=== PATIENT | male | born 1950 | race Caucasian/White ===

== ENCOUNTER → 2024-12-06 13:40 | Outpatient (REF) | payer MEDICARE, OTHER, SELFPAY | LOC: HWRAD 13:40 | PROVIDERS: ATTENDING PHYSICIAN Specialist; FAMILY PHYSICIAN Internal Medicine | DX: R80.9 Proteinuria, unspecified (principal); N18.30 Chronic kidney disease, stage 3 unspecified | CPT/HCPCS: 76770 ==

== ENCOUNTER 2025-07-27 05:09 | Inpatient (IN) | payer MEDICARE, OTHER, SELFPAY ==
[2025-07-26 19:36] VITALS: BP 182/97
[2025-07-26 20:07] LABS: Hematocrit 42.0 % (39.0-52.0); Hemoglobin 14.2 g/dL (13.0-18.0); Mean Corp Hgb Conc. 33.8 g/dL (33.0-37.0); Mean Corpuscular Volume 90.7 fL (80.0-94.0); Nucleated Red Blood Cells % 0 % (-); Platelet Count 244 10^3/uL (130-400); Red Cell Dist. Width 13.3 % (11.5-14.5)
[2025-07-26 20:27] VITALS: BMI 39.4
[2025-07-26 20:29] LABS: ALT (SGPT) 16 U/L (0-50); AST (SGOT) 20 U/L (17-59); Albumin 4.0 g/dl (3.5-5.0); Alkaline Phosphatase 96 U/L (38-126); Blood Urea Nitrogen 20 mg/dl (9-20); Calcium 8.9 mg/dl (8.4-10.2); Carbon Dioxide 22 mmol/L (22-30); Chloride 111 mmol/L (98-107); Glucose 103 mg/dl (70-99); Potassium 5.9 mmol/L (3.5-5.1); Sodium 138 mmol/L (135-145); Total Protein 6.8 g/dl (6.3-8.2); eGFR 56.93
[2025-07-26 20:39] LABS: Troponin I < 0.012 ng/ml
[2025-07-27] VITALS (11 sets, daily range): BP systolic 123–173; BP diastolic 57–97; BMI 40.0
--- NOTE | 2025-07-27 00:20 | ED.GENMED ---
History of Present Illness
General
Chief Complaint: Breathing Problem
Source: patient
Exam Limitations: none
Time Seen by Provider: 07/27/25 00:18
Nursing documentation reviewed up to this point in time: agreed with
History of Present Illness
History of Present Illness:
Note:
CHIEF COMPLAINT(S)
Shortness of breath and tightness in the chest.
HISTORY OF PRESENT ILLNESS
The patient is a 74-year-old male with a history of being overweight, HTN, renal insufficency, presenting with acute onset shortness of breath around 3:00 PM today. The patient described his usual state of being able to walk to the mailbox and back
without difficulty, but todays episode was markedly different. He experienced heavy breathing and a sensation of tightness in his chest, prompting concerns about a possible cardiac event. He reported attempting to alleviate symptoms by taking a hot
shower, resulting in coughing up a significant amount of phlegm and needing to clear his nasal passages. Though he did not carefully inspect the expectorated material for blood, he denied noticing any obvious hemoptysis. The patient has a history of
chronic obstructive pulmonary disease (COPD), diagnosed approximately 15 years ago, but was recently informed by a associate professor of literacy that he may have emphysema instead. He denied ever receiving inhalers or other medications for COPD/emphysema. No chest
pain was reported, but the sensation of tightness made the patient anxious about a heart attack.
He described difficulty with exertion, as even a short walk to the kitchen left him hunched over and out of breath. His current level of exertion tolerance is significantly diminished compared to baseline.
EXTERNAL RECORDS REVIEWED
The patient underwent a chest X-ray which showed no signs of pneumonia. An EKG was performed, returning normal results.
CHRONIC MEDICAL CONDITIONS SIGNIFICANTLY AFFECTING CARE
The patient has a history of COPD, specifically emphysema.
SOCIAL HISTORY
The patient has a history of heavy smoking, smoking three packs per day for about 20 years starting at age 9. He quit smoking approximately 40 years ago.
MEDICATIONS
The patient reported not being on any medications for COPD or emphysema.
PHYSICAL EXAM
General: Alert, no acute distress.
Skin: Warm, dry.
Head: Normocephalic, atraumatic.
Neck: Supple, trachea midline.
Eye, Ears, Nose, Mouth, and Throat: Oral mucosa moist.
Cardiovascular: Normal peripheral perfusion, no edema.
Respiratory: Breathing rapid; oxygen saturation measured at 93% on room air. Diffuse wheezing heard throughout
Gastrointestinal: Abdomen nondistended.
Back: Normal range of motion, normal alignment.
Musculoskeletal: Normal ROM, normal strength.
Neurological: Alert and oriented to person, place, time, and situation; no focal neurological deficit observed.
Psychiatric: Cooperative, appropriate mood & affect.
PROBLEM LIST
Acute Problems:
- Acute exacerbation of emphysema, suspected viral trigger.
- Shortness of breath and chest tightness.
Chronic Problems:
- History of COPD/emphysema.
- History of heavy smoking.
PLAN
1. Administer breathing treatments to open the airways.
2. Provide a steroid dose through the IV to reduce inflammation.
3. Monitor the patients response to treatment and assess whether hospital admission for observation is necessary.
4. Arrange for a follow-up with a associate professor of literacy as an outpatient to investigate the underlying cause of the acute episode further.
5. Maintain observation due to the significant decline in exertion tolerance and patients preference for staying overnight for monitoring.
DIFFERENTIAL DIAGNOSIS
The Differential Diagnosis includes, in no particular order and is not limited to:
1. Acute exacerbation of chronic obstructive pulmonary disease (COPD).
2. Emphysema exacerbation.
3. Viral upper respiratory tract infection.
4. Bronchitis.
5. Congestive heart failure.
6. Pulmonary embolism.
7. Asthma exacerbation.
8. Pneumonia.
9. Cardiomyopathy.
10. Pneumothorax.
Disposition:
SUMMARY OF ENCOUNTER
The patient, a 74-year-old male with a history of chronic obstructive pulmonary disease (COPD), presented to the emergency department with severe shortness of breath after walking at home. His drove him to the ER. On examination, he exhibited
increased respiratory rate, with scattered wheezing audible throughout his lungs. There was an improvement in his symptoms following the administration of duonebs (albuterol and ipratropium) and dexamethasone; however, symptoms persisted. His oxygen
saturation dropped into the high 80s with ambulation but showed significant improvement with supplemental oxygen. He expressed feeling unsafe to return home due to the severity of his symptoms. Based on the ongoing respiratory distress and the need
for further management, admission was recommended.
DISPOSITION
Admit
ASSESSMENT
Acute exacerbation of COPD, likely triggered by a viral infection or environmental factors, requiring admission for further management and stabilization.
EMERGENCY TREATMENTS ADMINISTERED
Duonebs (albuterol and ipratropium) and dexamethasone (Decadron), with plans to initiate azithromycin (Zithromax).
PLAN
1. Admit the patient for continued respiratory support and monitoring.
2. Continue oxygen supplementation as needed to maintain adequate oxygen saturation levels.
3. Initiate antibiotic treatment with azithromycin to address potential infectious triggers.
4. Continuous monitoring of respiratory status and response to treatments.
INDEPENDENT REVIEW OF LABS AND INTERPRETATION OF TESTS
None mentioned.
MEDICATION RECONCILIATION
- Administered: Duonebs (albuterol and ipratropium) and dexamethasone (Decadron).
- Prescribed: Azithromycin (Zithromax) to be administered during admission.
MEDICAL DECISION MAKING
- Number and Complexity of Problems Addressed: Chronic conditions affecting care include COPD. Differential diagnosis considered included acute exacerbation of COPD, emphysema exacerbation, viral upper respiratory tract infection, bronchitis,
congestive heart failure, asthma exacerbation, pneumonia, and pulmonary embolism.
- Data:
Category 1: Tests and documents reviewed�Respiratory assessment and treatment response in the emergency department.
- Risk: Consideration of Admission/Observation: Due to the complexity and risk of the patients presenting symptoms, a decision to admit for observation and management was made. Patient expressed feeling unsafe for discharge.
DIAGNOSIS
- Acute exacerbation of COPD (J44.1)
Review of Systems
Review of Systems
All Other Systems: ROS reviewed and negative except as documented in HPI and ROS
Phy Exam
Physical Exam
Physical Exam:
see hpi
Scores
Heart Failure Risk
Heart Failure Risk Score: Not Applicable
Course
Orders/Labs/Results
Orders:
Orders
07/26/25 19:42
Electrocardiogram (*1) Urgent
Reason for Study: Other
Other Reason for Exam: Respiratory Distress
Cardiac Monitoring- Treatment ONCE
EKG- Treatment ONCE
IV Insert/Care/Rem.- Treatment PRN
CR Chest - 2 Views Urgent
Comment:
Reason For Exam: respiratory distress
O2 Therapy [RESP] Urgent
Titrate/Wean O2 to maintain O2 sat greater than (%): 93
Special Instructions: TO MAINTAIN CONTINUOUS O2 SATS >/= 93%
Pulse Ox/cont/shift [RESP] Urgent
Quantity: 1
Special Instructions: continuous pulse ox
07/26/25 19:57
Complete Blood Count/With Diff Urgent
Comprehensive Metabolic Panel Urgent
NT-proBNP Urgent
Troponin I Urgent
07/27/25 00:34
Dexamethasone Sod Phosphate [Decadron] 10 mg IV NOW STA
Ipratropium/Albuterol Sulfate [Duoneb] 3 ml INH R NOW ONE
07/27/25 00:42
COVID-19 Antigen Urgent
Source: Nasal Swab
Influenza A+B Rapid Molecular Urgent
OSMAR Source: Nasal Swab
Specimen Description:
07/27/25 02:24
Ipratropium/Albuterol Sulfate [Duoneb] 3 ml INH R NOW ONE
07/27/25 02:53
Azithromycin 500 mg/250 ml [Zithromax Infusion] 500 mg in 250 ml IV NOW
07/27/25 04:02
Admit/Transfer Patient As Directed
Co-Sign Provider:
Level of Care: Inpatient admission
Assign to:: Telemetry
Physician / Group: Sho
Diagnosis: Acute bronchitis
Reason for Telemetry: Other
Other Reason for Telemetry: hyperkalemia
Date to Stop Telemetry: 07/29/25
Time to Stop Telemetry: 11:00
Reason for Hospitalization: Hypoxia
Expected length of stay greater than two midnights?: Yes
ELOS- Estimated Length of Stay in days: 2
I certify the patient meets the requirements for IP care: Yes
PRN Pain Medication Management As Directed
May give lesser potent ordered pain med per pt: Yes
preference::
Protocol:: Medication orders for pain may be administered in a
manner that supports deferring to patient preference
when the pt is:
- Requesting an ordered lesser potent pain medication.
Least to most potent pain medications are defined
as: acetaminophen < NSAID < tramadol < opioids
(morphine, oxycodone, hydromorphone).
- Requesting a lesser dose of the same medication IF
ORDERED.
- Requesting a less intrusive route of administration
if both routes are prescribed by the provider (PO <
IV).
07/27/25 04:03
Code Status As Directed
Resuscitation Status: Full Code
07/27/25 04:08
Furosemide [Lasix] 20 mg IV NOW STA
Sodium Zirconium Cyclosilicate [Lokelma] 5 gram PO NOW STA
07/27/25 04:12
PRN Pain Medication Management As Directed
May give lesser potent ordered pain med per pt: Yes
preference::
Protocol:: Medication orders for pain may be administered in a
manner that supports deferring to patient preference
when the pt is:
- Requesting an ordered lesser potent pain medication.
Least to most potent pain medications are defined
as: acetaminophen < NSAID < tramadol < opioids
(morphine, oxycodone, hydromorphone).
- Requesting a lesser dose of the same medication IF
ORDERED.
- Requesting a less intrusive route of administration
if both routes are prescribed by the provider (PO <
IV).
07/27/25 04:13
ECG [Electrocardiogram (*1)] Stat
Reason for Study: Other
Other Reason for Exam: Hyperkalemia
07/27/25 Breakfast
Potassium, 2 Gram
At Your Request: Full Participation
Does patient need a safe tray?: No
07/27/25 08:22
Acetaminophen [Tylenol] 650 mg PO Q4HPRN PRN
Albuterol Nebs [Ventolin Nebules] 2.5 mg INH R Q4HPRN PRN
Allopurinol [Zyloprim] 200 mg PO DAILY
Atorvastatin [Lipitor] 40 mg PO DAILY
Bisacodyl [Dulcolax] 10 mg RECTAL [id number] PRN
Carvedilol [Coreg] 25 mg PO BID
Docusate W/Senna [Senokot-S] 1 tablet PO BIDPRN PRN
Guaifenesin/Dextromethorphan [Robitussin Dm] 5 ml PO Q6HPRN PRN
Ipratropium/Albuterol Sulfate [Duoneb] 3 ml INH R QID
Mag Hydrox/Al Hydrox/Simeth [Maalox] 30 ml PO Q6HPRN PRN
Pantoprazole [Protonix] 40 mg PO DAILY
Polyethylene Glycol Powder [Miralax] 17 grams PO DAILYPRN PRN
Tamsulosin [Flomax] 0.8 mg PO DAILY
Peak Flow Rate [RESP] DAILY
Quantity: 1
07/27/25 08:22
Urinalysis Reflex To Culture Routine
Sputum Culture [Respiratory Culture/Gram Stain] Routine
OSMAR Source: Sputum
Specimen Description:
Activity As Directed
Activity Level: With Assistance
Vital Signs As Directed
Frequency: Per unit guidelines
Rx Incentive Spirometry [RESP] Routine
Frequency: q1h while awake
DX Deep Vein Thrombosis Video Routine
07/27/25 08:30
Basic Metabolic Panel Routine
Complete Blood Count/No Diff Routine
Magnesium Routine
07/27/25 09:00
NIFEdipine EXTENDED RELEASE [Procardia Xl (Extended Release)] 30 mg PO DAILY
07/27/25 18:00
Enoxaparin Sodium [Lovenox] 40 mg SC QPM
07/27/25 22:00
Losartan [Cozaar] 100 mg PO HS
07/28/25 03:00
Azithromycin 500 mg/250 ml [Zithromax Infusion] 500 mg in 250 ml IV Q24H
07/29/25 11:00
DC Protocol for Telemetry ONCE
Abnormal Lab Results
07/26/25
19:57
WBC 17.2 H 10^3/uL
(4.8-10.8)
RBC 4.63 L 10^6/uL
(4.70-6.10)
Abs Immat Gran (auto) 0.1 H 10^3/uL
(0-0.05)
Absolute Neuts (auto) 13.8 H 10^3/uL
(1.4-6.5)
Absolute Monos (auto) 1.0 H 10^3/uL
(0.1-0.6)
Neutrophils % 80.2 H %
(42.2-75.2)
Lymphocytes % 11.4 L %
(20.5-51.1)
Potassium 5.9 H mmol/L
(3.5-5.1)
Chloride 111 H mmol/L
(98-107)
Glucose 103 H mg/dl
(70-99)
07/26/25 19:57
07/26/25 19:57
Vital Signs
Initial and Last Documented VS:
Initial Vital Signs
Temp Pulse Resp BP Pulse Ox
98.0 F 82 36 182/97 94
07/26/25 19:36 07/26/25 19:36 07/26/25 19:36 07/26/25 19:36 07/26/25 19:36
Last Documented Vital Signs
Temp Pulse Resp BP Pulse Ox
98.7 F 100 20 165/94 95
07/27/25 08:25 07/27/25 08:25 07/27/25 08:25 07/27/25 08:25 07/27/25 08:25
*Pulse Oximetry
SaO2: 93
Oxygen Mode of Delivery: Room air
Patient hypoxic: no
*Critical Care Note
Total Time (30-74mins, 75-104mins- exclusive of procedures): Not Applicable
ED Attending Note
-
Portions of this chart may have been created with voice recognition software.� Occasional wrong word or��sound alike� substitutions may have occurred due to the inherent limitations of voice recognition software.
Discharge Plan
Departure
Patient Disposition: Admit
Date of Disposition: 07/27/25
Time of Disposition: 02:54
Admit to: Med/Surg
Presentation/result/management discussed w/ accepting MD/DO: Hospitalist
Patient with high blood pressure during this ER visit?: Yes
Condition: Fair
Discharge Problem:
COPD exacerbation
Interventions
Interventions:
*Risk Screen - Suicide Last Done: 07/26/25 19:51
*General Assessment Last Done: 07/26/25 20:27
*ED- Fall Risk Assessment Last Done: 07/26/25 20:27
*ED COVID-19 Vaccine History Last Done: 07/26/25 20:27
*Nursing Disposition Last Done: 07/27/25 08:15
ED- Cardiac Assessment Last Done: 07/26/25 20:31
ED- Pulmonary Assessment Last Done: 07/26/25 20:31
Discharge Date and Time
Discharge Date/Time: 07/27/25 08:15
[2025-07-27] MEDS: DECADRON 10 MG IV (00:52)
[2025-07-27] MEDS: DUONEB 3 ML INH ×5 (00:52→19:10)
[2025-07-27 01:33] LABS: COVID-19 Antigen Negative (Negative)
[2025-07-27] MEDS: ZITHROMAX INFUSION 250 IV (03:04)
--- NOTE | 2025-07-27 03:42 | HPS.HSE ---
Family Physician
-
Family Physician: Randal Funez
Chief Complaint
-
Shortness of breath
History of Present Illness
This is a 74-year-old with past medical history significant for hypertension, hyperlipidemia, BPH, GERD, obesity, REJI not on CPAP who presents to the emergency department with productive cough and shortness of breath.
Patient reported that he was seen yesterday felt up until the afternoon prior to coming to the ED. He had just finished doing some work around his house when he felt short of breath. He felt some chest tightness to he could not clear phlegm from
his chest. Patient reports history of chronic morning cough that is productive of tiny amount of phlegm. In today to clear out the congestion the patient took a shower and applied some hot water. This resulted in cough productive of large amount
of phlegm. He was unaware of the color because he swallowed it. He coughed up just like 20 of phlegm 3 times. When he walked out of the shower he started getting dyspnea on exertion with minimal activity. He was walking across the room or even
getting to bed because his some dyspnea. He states the chest tightness continues. He audible respiratory sounds.
He denied having any chills. He denied any fevers. Patient denies any chest pain. He denies palpitations or lower extremity edema.
Patient reported that he has been told that he had COPD in the past but later was told that he had emphysema. He is a former smoker but quit over 30 years ago. He denies any prior history of recurrent bronchitis. He has not been hospitalized for
pneumonia or bronchitis in the past. He has never been fully evaluated for airway obstructive disease. Patient does have REJI but he is not tolerant of CPAP.
On review he does state that he has continued to have dysuria over the last 1 month. He reports a prior history of kidney stone. Currently, he denies any flank pain. He denies any hematuria.
On arrival in the emergency department he was hypoxic requiring supplemental oxygen and now satting 95% on 2 L. Blood pressure was 182/87 pulse 87. ECG NSR 80. Trop/BNP negative.
Otherwise, 7.2, hemoglobin 14.2 platelet count 244. Labs notable for a potassium of 5.9 BUN and creatinine were stable compared to baseline. COVID test was negative, flu test was negative.
Chest x-ray showed no acute infiltrate.
Medical History
Past Medical History
Past Medical History: Reports GERD, HTN, Hypercholesterolemia and Other (Nephrolithiasis, BPH, gout)
Past Surgical History: Reports Other (Hernia repair)
Social History
Tobacco: Former Smoker
Alcohol: Occasional
Drug: None
Personal:
Living: With Family
Employment: Retired
Family History
Family History: Not pertinent
Allergies / Home Medications
Allergies reflects when Allergies were last updated in [facility].
Home Medications with original date entered in [facility]
Allergy/Medication List:
Allergies
Allergy/AdvReac Type Severity Reaction Status Date / Time
amlodipine (From Norvasc) Allergy cough Verified 07/26/25 19:36
felodipine (From Plendil) Allergy gout Verified 07/26/25 19:36
Home Medications
allopurinol 100 mg tablet 200 mg PO DAILY 07/27/25
atorvastatin 40 mg tablet 40 mg PO DAILY 07/27/25
carvedilol 25 mg tablet 25 mg PO BID 07/27/25
losartan 100 mg tablet 100 mg PO HS 07/27/25
losartan 100 mg tablet mg 07/27/25
nifedipine 30 mg tablet,extended release 24 hr 30 mg PO DAILY 07/27/25
pantoprazole 40 mg tablet,delayed release 40 mg PO DAILY 07/27/25
tamsulosin 0.4 mg capsule 0.8 mg PO DAILY 07/27/25
Review of Systems
-
History Source: Patient
Constitutional: Reports No Symptoms
EENT: Reports No Symptoms
Respiratory: Reports Cough and Trouble Breathing
Cardiac: Reports No Symptoms
Abdomen/GI: Reports No Symptoms
: Reports No Symptoms
Musculoskeletal: Reports No Symptoms
Skin: Reports No Symptoms
Neurological: Reports No Symptoms
Endocrine: Reports No Symptoms
Hematologic/Lymphatic: Reports No Symptoms
Psych: Reports No Symptoms
Physical Exam
Vital Signs
Vital Signs
Temp Pulse Resp BP Pulse Ox
98.0 F 87 17 182/97 95
07/26/25 19:36 07/27/25 03:00 07/27/25 03:00 07/26/25 19:36 07/27/25 03:09
Physical Exam
General: Well Developed, Comfortable, Conversant and Obese; No Respiratory Distress
HEENT: NormoCephalic, Anicteric, Moist mucous membranes, Atraumatic, PERRLA and Oxygen
Respiratory: Clear
Cardiac: S1/S2 and Regular Rhythm
Breast: Deferred by me
GI: Soft, Non Tender, Normal Bowel Sounds and Distended
Rectal: Deferred by Provider
Genito-urinary: Deferred by me
Musculoskeletal: No Clubbing, No Cyanosis, Edema, Left Lower Extremity (trace ankle) and Edema, Right Lower Extremity (trace)
Skin: Warm and Dry; No Rash
Neuro: AO x 3 and Nonfocal/grossly intact
Hematologic/Lymphatic: No Lymphadenopathy
Psych: Calm
Laboratory Results
-
07/26/25 19:57
07/26/25 19:57
Laboratory Results
Total Bilirubin 0.4 mg/dl (0.2-1.3) 07/26/25 19:57
AST 20 U/L (17-59) 07/26/25 19:57
ALT 16 U/L (0-50) 07/26/25 19:57
Alkaline Phosphatase 96 U/L (38-126) 07/26/25 19:57
Troponin I < 0.012 ng/ml 07/26/25 19:57
Data Reviewed
-
Diagnostic Radiology: Report Reviewed by me
Lab Data: Labs Reviewed by me
Impression/Plan
-
IMPRESSION:
74-year-old generally healthy with obesity, hypertension, hyperlipidemia, gout, BPH who reports being told he had COPD/emphysema but has never been hospitalized for bronchitis or COPD exacerbation and has quit smoking over 30 years ago presents to
the emergency department with acute episode of shortness of breath and cough productive of phlegm which she is followed. He has increased oxygen requirement, and so dyspnea even at rest. By time I saw him after the neb treatments patient has been
feeling better. He has no fever but has a white count of 17.2. Chest x-ray is clear. COVID and flu are negative. Hyperkalemia on labs of uncertain etiology
PLAN:
1. SOB -productive cough, wheezing (course), dyspnea and a likely history of COPD/emphysema suggestive of acute bronchitis/COPD exacerbation. X-ray is clear. No infiltrates. Does have trace peripheral edema but no prior history of CHF or CAD.
Likely from calcium channel marixa use.
-Admit to MedSurg
-Obtain sputum for culture
-Start azithromycin at this time
-Blood cultures afebrile
-Continue with the DuoNeb [id number], as needed albuterol
-60 mg prednisone daily
-Check BNP in the morning
2. Hyperkalemia - K 5.9. Creatinine 1.3 which is likely his baseline. Endo history of diabetes but he is on losartan 100 mg no prior labs.
-Suspect ARB induced hyperkalemia
-Will give 1 dose of Lokelma
-Will give 20 mg IV Lasix
-Repeat K in a.m.
-Low K diet for now
- consider addition of diuretic for improvement in bp control and K control (may be limited by gout)
3. Urine -patient reports dysuria for several weeks. Denies gross hematuria. Denies any flank pain or other signs of nephrolithiasis or infection.
-Obtain UA
-Continue tamsulosin 0.8 and monitor ins and outs and monitor for urinary retention
4. Hypertension
-Continue losartan, carvedilol and nifedipine for now
DVT prophylaxis�Lovenox subcu
CODE STATUS�full code
[2025-07-27] MEDS: LASIX 20 MG IV (04:19)
[2025-07-27] MEDS: LOKELMA 5 GRAM PO (04:19)
[2025-07-27 08:39] LABS: Hematocrit 42.5 % (39.0-52.0); Hemoglobin 14.1 g/dL (13.0-18.0); Mean Corp Hgb Conc. 33.2 g/dL (33.0-37.0); Mean Corpuscular Volume 90.8 fL (80.0-94.0); Platelet Count 262 10^3/uL (130-400); Red Cell Dist. Width 13.2 % (11.5-14.5)
--- NOTE | 2025-07-27 08:42 | W.PN.HOSP.TC ---
Today's Communication/Plan
-
steroids
bronchodilators
wean O2 as tolerated
Pulm Eval
Assessment / Plan
Assessment / Plan
Physical Exam
General: No acute distress, appears comfortable at this time, Obese
HEENT: NormoCephalic, Anicteric, Moist mucous membranes, Atraumatic, PERRLA
Respiratory: Clear to auscultation b/l, stable respiratory status on 2L nasal cannula
Cardiac: S1/S2 and Regular Rhythm
GI: Soft, Non Tender, Normal Bowel Sounds and Distended
Musculoskeletal: No Clubbing, No Cyanosis, No edema
Skin: Warm and Dry; No Rash
Neuro: AO x 3 conversant and coherent
Psych: Calm
74M HTN HLD BPH GERD Obesity REJI COPD here for acute sob suspected bronchitis.
# SOB suspected acute bronchitis/COPD exacerbation. X-ray is clear. No infiltrates.
-Cont azithromycin
-Blood cultures afebrile
-Continue with the DuoNeb [id number], as needed albuterol
-Prednisone 40 mg daily
-BNP 290
-ECHO appreciated EF 60-65%
-Mild D-dimer elevation noted 0.76, patient already clinically improved non-tachy, with renal insufficiency would hold off on CT PE study for now
-Pulm eval
# Hyperkalemia - K 5.9. Creatinine 1.3 which is likely his baseline.
-Suspect ARB induced hyperkalemia
-Received 1 dose of Lokelma and 20 mg IV Lasix on admission
-K since improved though not resolved
-Low K diet for now
# Urine -patient reports dysuria for several months. Denies gross hematuria. Denies any flank pain or other signs of nephrolithiasis or infection.
-UA not suggestive of UTI
-Continue tamsulosin 0.8 and monitor ins and outs and monitor for urinary retention
# Hypertension
-Continue home carvedilol and nifedipine
-hold home losartan d/t hyperkalemia as above
dvt ppx Lovenox
Full Code
I spent a total of 50 minutes with the patient or on the floor. More than 50% of this time involved counseling and coordination of care.
Anticipated Discharge: 24 - 48 hours
Subjective/Interval History
-
Date of Service: July 27, 2025
No acute distress, sitting up comfortably in bed. Reports overall improvement in symptoms, including sob. stable respiratory status on 2L nasal cannula.
Objective Data
-
Labs:
Laboratory Results
07/27/25
08:30
WBC 17.1 H
Hgb 14.1
Hct 42.5
Plt Count 262
Sodium Pending
Potassium Pending
Chloride Pending
Carbon Dioxide Pending
BUN Pending
Creatinine Pending
Glucose Pending
Calcium Pending
Vital Signs:
Vital Signs
Temp Pulse Resp BP Pulse Ox
98.7 F 100 20 165/94 95
07/27/25 08:25 07/27/25 08:25 07/27/25 08:25 07/27/25 08:25 07/27/25 08:25
[2025-07-27 09:22] LABS: Blood Urea Nitrogen 24 mg/dl (9-20); Calcium 9.8 mg/dl (8.4-10.2); Carbon Dioxide 22 mmol/L (22-30); Chloride 108 mmol/L (98-107); Estimated Creatinine Clearance 58 ml/min; Glucose 174 mg/dl (70-99); Magnesium 1.6 mg/dl (1.6-2.3); Potassium 5.3 mmol/L (3.5-5.1); Sodium 139 mmol/L (135-145); eGFR 47.95
[2025-07-27] MEDS: ZYLOPRIM 200 MG PO (09:27)
[2025-07-27] MEDS: PROTONIX 40 MG PO (09:28)
[2025-07-27] MEDS: LIPITOR 40 MG PO (09:28)
[2025-07-27] MEDS: PROCARDIA XL (EXTENDED RELEASE) 30 MG PO (09:28)
[2025-07-27] MEDS: COREG 25 MG PO ×2 (09:29→20:34)
[2025-07-27] MEDS: FLOMAX 0.8 MG PO (09:29)
[2025-07-27] MEDS: DELTASONE 40 MG PO (10:04)
[2025-07-27] MEDS: DUONEB INH (10:26)
[2025-07-27 10:56] LABS: D-Dimer 0.76 ug/mlFEU (0.00-0.50)
[2025-07-27] MEDS: TYLENOL 650 MG PO (11:19)
--- NOTE | 2025-07-27 13:02 | CM ---
CM reviewed chart, patient seen bedside, initial assessment completed. Patient resides independently in multiple level home, resides on first floor, ramp to enter. Patient has a commode, walker, cane, safety rails in bathroom. Patient currently on
O2, does not wear home O2. Patient denies VN, reports SNF hx in past ([facility], another facility in [place]). PCP Adam Funez, [facility], confirms prescription coverage. Patient denies insecurities at home. CM will continue to
follow for all discharge planning needs.
Plan; home no needs, watch for O2/VN needs.
--- NOTE | 2025-07-27 15:18 | CON.PUL ---
Consultation
Consultation Request
Date/Time Consultation Requested: 07/27/2025
Date/Time Consultation Performed: 07/27/2025
Requesting Provider: Dr. Berkowitz
Performing Provider: Dr. Brent Neil
Reason for Consultation: Exertional dyspnea/COPD exacerbation
Medical History
-
History of Present Illness:
74-year-old man with history of obesity, hypertension, hyperlipidemia, gout, BPH, reports history of COPD without any acute exacerbations in the past, quit smoking 30 years ago presented to the emergency department on 07/27/2025 complaining of acute
shortness of breath and productive cough with phlegm. Denies hemoptysis.
He was found to be hypoxemic requiring supplemental oxygen.
Patient felt better with nebulizer therapy.
He was found to have leukocytosis 17,000.
Chest x-ray without acute abnormalities.
We were consulted on 07/27/2025 for evaluation of respiratory distress.
Past Medical History
Past Medical History: Other (See assessment and plan)
Social History
Tobacco: Former Smoker (Quit 30 years ago)
Alcohol: Occasional
Drug: None
Personal:
Living: With Family
Employment: Retired
Family History
Family History: Reviewed & Not Pertinent
Allergies / Home Medications
Allergies
Allergy/AdvReac Type Severity Reaction Status Date / Time
amlodipine (From Norvasc) Allergy cough Verified 07/26/25 19:36
felodipine (From Plendil) Allergy gout Verified 07/26/25 19:36
Home Medications
�Medication �Instructions �Recorded �Confirmed �Last Taken �Type
allopurinol 100 mg tablet 200 mg PO DAILY 07/27/25 07/27/25 Unknown History
atorvastatin 40 mg tablet 40 mg PO DAILY 07/27/25 07/27/25 Unknown History
carvedilol 25 mg tablet 25 mg PO BID 07/27/25 07/27/25 Unknown History
losartan 100 mg tablet 100 mg PO HS 07/27/25 07/27/25 Unknown History
losartan 100 mg tablet mg 07/27/25 Unknown History
nifedipine 30 mg tablet,extended 30 mg PO DAILY 07/27/25 07/27/25 Unknown History
release 24 hr
pantoprazole 40 mg tablet,delayed 40 mg PO DAILY 07/27/25 07/27/25 Unknown History
release
tamsulosin 0.4 mg capsule 0.8 mg PO DAILY 07/27/25 07/27/25 Unknown History
Review of Systems
-
History Source: Patient
All other systems: Negative unless noted
Vitals / Labs / Diagnostic Testing
Vital Signs
Temp Pulse Resp BP Pulse Ox
98.3 F 72 20 140/68 95
07/27/25 11:15 07/27/25 11:25 07/27/25 11:25 07/27/25 11:15 07/27/25 11:25
Lab Data
07/27/25 08:30
07/27/25 08:30
Microbiology
07/27/25 00:42 Nasal Swab Influenza Types A & B (TIMI) - Final
Negative for Influenza A & B, NAAT
Negative results must be combined with clinical observations
and patient history.
Nucleic Acid Amplification test (NAAT)performed on the
[employer] platform.
Diagnostic Testing:
Physical Exam
-
HEENT: Normocephalic
Cardiovascular: S1/S2
Respiratory: Wheeze and Non-Labored Respirations
GI: Non Distended
Neurology: Awake, Oriented, AO x 3 and No Motor Deficits
Skin: Warm
General: Comfortable
Assessment
-
74-year-old man with past medical history noted. Came to the hospital complaining of cough, shortness of breath and phlegm production. Found to be hypoxemic., Found to be bronchospastic as well-started nebulizers steroids and antibiotics due to
present leukocytosis.
We were consulted on 07/27/2025 for evaluation.
Acute hypoxemic respiratory insufficiency: With cough, wheezing/phlegm production-suspect acute tracheobronchitis.
? History of COPD possible acute exacerbation of COPD-first time.
Usually not on inhaler
Negative flu and COVID.
Chest x-ray: 07/27/2025-reviewed, no acute abnormalities
Negative troponin/normal proBNP
Acute kidney injury
Conditions present prior admission:
Hypertension
Hypercholesterolemia
Gout
GERD
BPH
Former smoker quit 30 years ago
-
Assessment and plan:
Suspect acute tracheobronchitis-possible exacerbation of COPD-not formally diagnosed but patient does report history of it.
Usually not on inhalers
Bronchospasm improved 07/27/2025
Agree with tapering down to prednisone 40 mg and decrease by 10 mg every 48 hours to off.
Continue nebulizers while in the hospital.
With tracheobronchitis-negative chest x-ray-not unreasonable to use 5 days of antibiotics.
Will require close observation in the outpatient setting to assure he is clinically improved and he does not develop pneumonia.
I will recommend outpatient pulmonary follow-up.
-
Wean down FiO2 as able. Previously not on oxygen
Currently on 3 L nasal cannula.
Encourage deep breathing exercising and ambulation.
-
I did discuss with family and patient does have chronic shortness of breath previous to this. Family suspect is from obesity and possibly underlying COPD.
Recommend pulmonary function testing
Echocardiogram pending
-
Snoring: Discussed possibility of obstructive sleep apnea. Will discuss in the outpatient setting.
-
Will follow
[2025-07-27] MEDS: LOVENOX 40 MG SC (16:39)
--- NOTE | 2025-07-27 20:05 | PTCARENOTE ---
Notified CIRCULATING PROCESS INSPECTOR via TT of elevated DDimer from dayshift after reviewing patient's labs. CIRCULATING PROCESS INSPECTOR forwarded TT to daytime provider and is awaiting his response.
[2025-07-28] VITALS (8 sets, daily range): BP systolic 124–171; BP diastolic 57–84; PULSE 73–74; O2SAT 94
[2025-07-28] MEDS: ZITHROMAX INFUSION 250 IV (03:20)
[2025-07-28 04:06] LABS: Urine Character Clear (Clear)
[2025-07-28 05:09] LABS: Urine Squamous Cell >30 /LPF (Few)
[2025-07-28 05:10] LABS: Urine Red Blood Cell 0-2 /HPF (0-2)
[2025-07-28] MEDS: DUONEB 3 ML INH ×4 (07:52→19:47)
--- NOTE | 2025-07-28 07:52 | W.PN.HOSP.TC ---
Today's Communication/Plan
-
see a/p
Assessment / Plan
Assessment / Plan
Physical Exam
General: No acute distress, appears comfortable at this time, Obese
HEENT: NormoCephalic, Anicteric, Moist mucous membranes, Atraumatic, PERRLA
Respiratory: Clear to auscultation b/l, stable respiratory status on room air
Cardiac: S1/S2 and Regular Rhythm
GI: Soft, Non Tender, Normal Bowel Sounds and Distended
Musculoskeletal: No Clubbing, No Cyanosis, No edema
Skin: Warm and Dry; No Rash
Neuro: AO x 3 conversant and coherent
Psych: Calm
74M HTN HLD BPH GERD Obesity REJI COPD here for acute sob suspected bronchitis.
# SOB suspected acute bronchitis/COPD exacerbation. X-ray is clear. No infiltrates.
-Cont azithromycin
-Blood cultures afebrile
-Continue with the DuoNeb otlape-fgk-eyabm, as needed albuterol
-Prednisone 40 mg daily
-BNP 290
-ECHO appreciated EF 60-65%
-Mild D-dimer elevation noted 0.76, patient already clinically improved non-tachy, with renal insufficiency would hold off on CT PE study for now
-Pulm eval appreciated
-check Home oxygen and nocturnal saturation
# Hyperkalemia - K 5.9. Creatinine 1.3 which is likely his baseline.
-Suspect ARB induced hyperkalemia
-Received 1 dose of Lokelma and 20 mg IV Lasix on admission
-K since improved though not resolved
-Low K diet for now
-repeat Lokelma 07/28
#Constipation
Bowel regimen Senokot-S Miralax
# Urine -patient reports dysuria for several months. Denies gross hematuria. Denies any flank pain or other signs of nephrolithiasis or infection.
-UA not suggestive of UTI
-Continue tamsulosin 0.8 and monitor ins and outs and monitor for urinary retention
-cont w outpt urology follow up
# Hypertension
-Continue home carvedilol and nifedipine
-hold home losartan d/t hyperkalemia as above
#Insomnia
patient normally takes Melatonin 30 mg nightly, counseled to reduce dose
trial trazodone 50 mg HS
dvt ppx Lovenox
Full Code
I spent a total of 45 minutes with the patient or on the floor. More than 50% of this time involved counseling and coordination of care.
Anticipated Discharge: Within 24 hours
Subjective/Interval History
-
Date of Service: July 28, 2025
weaned off oxygen supplementation, stable respiratory status on room air.
Objective Data
-
Labs:
Laboratory Results
07/28/25
07:26
WBC Pending
Hgb Pending
Hct Pending
Plt Count Pending
Sodium Pending
Potassium Pending
Chloride Pending
Carbon Dioxide Pending
BUN Pending
Creatinine Pending
Glucose Pending
Calcium Pending
Vital Signs:
Vital Signs
Temp Pulse Resp BP Pulse Ox
98.1 F 78 20 155/78 93
07/28/25 03:46 07/28/25 03:46 07/28/25 03:46 07/28/25 03:46 07/28/25 03:46
I&O
07/27/25 07/28/25 07/29/25
06:59 06:59 06:59
Intake Total 1280 / 1280
Output Total 275 / 275
Balance 1005 / 1005
[2025-07-28] MEDS: DELTASONE 40 MG PO (08:15)
[2025-07-28] MEDS: PROCARDIA XL (EXTENDED RELEASE) 30 MG PO (08:15)
[2025-07-28] MEDS: ZYLOPRIM 200 MG PO (08:15)
[2025-07-28] MEDS: COREG 25 MG PO ×2 (08:16→21:06)
[2025-07-28] MEDS: FLOMAX 0.8 MG PO (08:16)
[2025-07-28] MEDS: LIPITOR 40 MG PO (08:16)
[2025-07-28] MEDS: PROTONIX 40 MG PO (08:16)
[2025-07-28] MEDS: APRESOLINE 5 MG IV (08:20)
[2025-07-28 08:25] LABS: Hematocrit 39.3 % (39.0-52.0); Hemoglobin 13.1 g/dL (13.0-18.0); Mean Corp Hgb Conc. 33.3 g/dL (33.0-37.0); Mean Corpuscular Volume 90.3 fL (80.0-94.0); Platelet Count 236 10^3/uL (130-400); Red Cell Dist. Width 13.2 % (11.5-14.5)
[2025-07-28 08:54] LABS: Blood Urea Nitrogen 34 mg/dl (9-20); Calcium 9.4 mg/dl (8.4-10.2); Carbon Dioxide 24 mmol/L (22-30); Chloride 107 mmol/L (98-107); Estimated Creatinine Clearance 58 ml/min; Glucose 129 mg/dl (70-99); Magnesium 1.7 mg/dl (1.6-2.3); Potassium 5.3 mmol/L (3.5-5.1); Sodium 138 mmol/L (135-145); eGFR 47.95
[2025-07-28] MEDS: MIRALAX 17 GRAMS PO (10:38)
[2025-07-28] MEDS: LOKELMA 10 GRAM PO (10:38)
--- NOTE | 2025-07-28 11:33 | W.PN.PUL3 ---
Today's Communication / Plan
-
Complete 5 days of antibiotics-for bronchitis
Prednisone taper
No need to discharge on inhalers
Weight loss recommended
Obstructive sleep apnea reevaluation recommended-patient states that he is not interested at this point.
Outpatient pulmonary follow-up in the next several weeks
Sign off
Assessment
-
74-year-old man with past medical history noted. Came to the hospital complaining of cough, shortness of breath and phlegm production. Found to be hypoxemic., Found to be bronchospastic as well-started nebulizers steroids and antibiotics due to
present leukocytosis.
We were consulted on 07/27/2025 for evaluation.
Acute hypoxemic respiratory insufficiency: With cough, wheezing/phlegm production-suspect acute tracheobronchitis.
? History of COPD possible acute exacerbation of COPD-first time.
Usually not on inhaler
Negative flu and COVID.
Chest x-ray: 07/27/2025-reviewed, no acute abnormalities
Negative troponin/normal proBNP
Acute kidney injury
Conditions present prior admission:
Hypertension
Hypercholesterolemia
Gout
GERD
BPH
Former smoker quit 30 years ago
-
Assessment and plan:
Suspect acute tracheobronchitis-possible exacerbation of COPD-not formally diagnosed but patient does report history of it.
Usually not on inhalers
Bronchospasm resolved 07/28/2025.-
Continue prednisone 40 mg and decrease by 10 mg every 48 hours to off
Continue nebulizers while in the hospital.
With tracheobronchitis-negative chest x-ray-not unreasonable to use 5 days of antibiotics.
Persistent leukocytosis-possibly from steroids
Afebrile
Nontoxic
Clinically improved
Will require close observation in the outpatient setting to assure he is clinically improved and he does not develop pneumonia.
Recommend outpatient pulmonary cetdda-ac-tbbjzdo agreeable.
-
Oxygen supplementation has been discontinued.
Lung exam is clear to auscultation
Encourage deep breathing exercising and ambulation.
-
I did discuss with family and patient does have chronic shortness of breath previous to this. Family suspect is from obesity and possibly underlying COPD.
Recommend pulmonary function testing
Echocardiogram this admission: Reviewed showed normal LVEF. No significant valvular abnormalities or pericardial effusion. No motion wall abnormalities
-
Snoring: Discussed possibility of obstructive sleep apnea. Will discuss in the outpatient setting.
Patient states that he had obstructive sleep apnea and he was intolerant to CPAP.
For his obesity he was tried tried to get approved for GLP-1 agonist but the copayment was too expensive.
He is not interested on reevaluation for obstructive sleep apnea but will be an ongoing discussion in the outpatient setting.
-
No additional recommendations
Follow-up
Hopefully discharge soon.
Subjective Data
-
Date of Service:
Date of Service: July 28, 2025
Chief Complaint: Pulmonary Follow Up (Exertional dyspnea)
Subjective:
Patient does have chronic exertional dyspnea, worse in admission.
Feels better overall clinically.
Review of Systems
Cardiopulmonary: Dyspnea, Dyspnea on Exertion (Acute component improved) and Wheezing (None)
GI: Abdominal Pain
Objective Data
Data Reviewed
Vital Signs / I&O / Oxygen:
Vital Signs
Temp Pulse Resp BP Pulse Ox
97.6 F 67 18 171/84 95
07/28/25 08:45 07/28/25 08:45 07/28/25 08:45 07/28/25 08:45 07/28/25 08:45
Intake and Output
07/27/25 07/28/25 07/29/25
06:59 06:59 06:59
Intake Total 1280 / 1280
Output Total 275 / 275
Balance 1005 / 1005
SaO2 95
Nasal Cannula flow liters per 3
minute
Physical Exam
General: Comfortable
HEENT: Normocephalic
Cardiovascular: S1-S2
Respiratory: Non-Labored Respirations
GI: Soft, Non Distended and Non Tender
Neurology: Awake, Alert and AO x 3
Skin: Warm
Labs/Micro/Reports
Lab Data
07/28/25 07:26
07/28/25 07:26
Microbiology
07/27/25 00:42 Nasal Swab Influenza Types A & B (TIMI) - Final
Negative for Influenza A & B, NAAT
Negative results must be combined with clinical observations
and patient history.
Nucleic Acid Amplification test (NAAT)performed on the
[employer] platform.
[2025-07-28] MEDS: LOVENOX 40 MG SC (17:22)
[2025-07-28] MEDS: SENOKOT-S 1 TABLET PO (21:06)
[2025-07-28] MEDS: DESYREL 50 MG PO (21:07)
[2025-07-29 03:00] VITALS: BP 132/60
[2025-07-29 07:30] VITALS: BP 160/78
[2025-07-29 08:20] LABS: Hematocrit 40.4 % (39.0-52.0); Hemoglobin 13.8 g/dL (13.0-18.0); Mean Corp Hgb Conc. 34.2 g/dL (33.0-37.0); Mean Corpuscular Volume 90.8 fL (80.0-94.0); Platelet Count 264 10^3/uL (130-400); Red Cell Dist. Width 13.2 % (11.5-14.5)
[2025-07-29] MEDS: VENTOLIN NEBULES 2.5 MG INH (08:21)
[2025-07-29 08:58] LABS: Blood Urea Nitrogen 36 mg/dl (9-20); Calcium 8.8 mg/dl (8.4-10.2); Carbon Dioxide 24 mmol/L (22-30); Chloride 107 mmol/L (98-107); Estimated Creatinine Clearance 62 ml/min; Glucose 101 mg/dl (70-99); Magnesium 1.9 mg/dl (1.6-2.3); Potassium 4.4 mmol/L (3.5-5.1); Sodium 139 mmol/L (135-145); eGFR 52.09
[2025-07-29] MEDS: LIPITOR 40 MG PO (08:59)
[2025-07-29] MEDS: ZITHROMAX 250 MG PO (08:59)
[2025-07-29] MEDS: PROTONIX 40 MG PO (08:59)
[2025-07-29] MEDS: DELTASONE 40 MG PO (09:00)
[2025-07-29] MEDS: FLOMAX 0.8 MG PO (09:00)
[2025-07-29] MEDS: ZYLOPRIM 200 MG PO (09:00)
[2025-07-29] MEDS: SENOKOT-S 1 TABLET PO (09:00)
[2025-07-29] MEDS: COREG 25 MG PO (09:01)
[2025-07-29] MEDS: MIRALAX 17 GRAMS PO (09:01)
[2025-07-29] MEDS: PROCARDIA XL (EXTENDED RELEASE) 30 MG PO (09:03)
[2025-07-29 10:03] LABS: Troponin I 0.017 ng/ml
[2025-07-29 11:15] VITALS: BP 139/62
--- NOTE | 2025-07-29 12:57 | CM ---
CM reviewed chart, patient seen bedside. CM discussed with Hospitalist, patient does not require nocturnal O2. Per PT, no skilled need. Patient plan return home no needs. IMM verbally reviewed, provided with copy, placed in chart. Patient reports
his will provide transportation home. CM will continue to follow for all discharge planning needs.
Plan; home no needs
--- NOTE | 2025-07-29 14:05 | W.PN.HOSP.TC ---
Today's Communication/Plan
-
discharge
Assessment / Plan
Assessment / Plan
Physical Exam
General: No acute distress, appears comfortable at this time, Obese
HEENT: NormoCephalic, Anicteric, Moist mucous membranes, Atraumatic, PERRLA
Respiratory: Clear to auscultation b/l, stable respiratory status on room air
Cardiac: S1/S2 and Regular Rhythm
GI: Soft, Non Tender, Normal Bowel Sounds and Distended
Musculoskeletal: No Clubbing, No Cyanosis, No edema
Skin: Warm and Dry; No Rash
Neuro: AO x 3 conversant and coherent
Psych: Calm
74M HTN HLD BPH GERD Obesity REJI COPD here for acute sob suspected bronchitis.
# SOB suspected acute bronchitis/COPD exacerbation. X-ray is clear. No infiltrates.
-Cont azithromycin
-Blood cultures afebrile
-Continue with the DuoNeb tbvyjz-tjq-eobju, as needed albuterol
-Prednisone 40 mg daily
-BNP 290
-ECHO appreciated EF 60-65%
-Mild D-dimer elevation noted 0.76, patient already clinically improved non-tachy, with renal insufficiency would hold off on CT PE study for now
-Pulm eval appreciated
-Home oxygen assessment appreciated no neeeds
-Nocturnal saturation study results reviewed with [facility], no need for bedtime oxygen supplementation
# Hyperkalemia - K 5.9. Creatinine 1.3 which is likely his baseline.
-Suspect ARB induced hyperkalemia
-Received 1 dose of Lokelma and 20 mg IV Lasix on admission
-K since improved though not resolved
-Low K diet for now
-repeat Lokelma 07/28
-hyperkalemia resolved, recommend continuing with potassium restricted diet for now pending repeat BMP outpt
#Constipation
Bowel regimen Senokot-S Miralax
# Urine -patient reports dysuria for several months. Denies gross hematuria. Denies any flank pain or other signs of nephrolithiasis or infection.
-UA not suggestive of UTI
-Continue tamsulosin 0.8 and monitor ins and outs and monitor for urinary retention
-cont w outpt urology follow up
# Hypertension
-Continue home carvedilol and nifedipine
-home losartan resumed with resolution hyperkalemia
#Insomnia
patient normally takes Melatonin 30 mg nightly, counseled to reduce dose, 10 mg or less preferable
trazodone 50 mg HSprn
dvt ppx Lovenox
Full Code
Medically stable for discharge home with outpatient follow up recommendations.
Total Time Preparing Discharge __40 minutes including examination of the patient, summary of the hospital stay, instructions for continuing care to all relevant caregivers; and preparation of discharge records, prescriptions, and referral
forms if necessary.
Anticipated Discharge: Today
Subjective/Interval History
-
Date of Service: July 29, 2025
Seen and examined at bedside in no acute distress, sitting up comfortably in bed. Overall reports feeling well. Denies new acute issues at this time. Eager to go home. Stable respiratory status on room air.
Objective Data
-
Labs:
Laboratory Results
07/29/25
07:03
WBC 14.5 H
Hgb 13.8
Hct 40.4
Plt Count 264
Sodium 139
Potassium 4.4
Chloride 107
Carbon Dioxide 24
BUN 36 H
Creatinine 1.4 H
Glucose 101 H
Calcium 8.8
Vital Signs:
Vital Signs
Temp Pulse Resp BP Pulse Ox
97.2 F 69 16 139/62 96
07/29/25 11:15 07/29/25 11:15 07/29/25 11:15 07/29/25 11:15 07/29/25 11:42
I&O
07/28/25 07/29/25 07/30/25
06:59 06:59 06:59
Intake Total 1280 / 1280 780 / 780
Output Total 275 / 275 875 / 875
Balance 1005 / 1005 -95 / -95
[2025-07-29 15:50] VITALS: BP 152/73
--- NOTE | 2025-07-29 16:47 | W.DCSUMMARY ---
Discharge Summary
Discharge Data
Date of Admission: 07/27/25
Date of Discharge: 07/29/25
-
Pending Results: No
Discharge Plan
-
Patient Disposition: Home (Routine Discharge)
Discharge Diagnosis/Procedures: Acute Bronchitis/COPD exacerbation
Hyperkalemia Resolved
Constipation
Hypertension
Insomnia
Condition: Fair
Diet: Other diet
Additional Diets: 2g Potassium restricted diet. Continue with this diet pending repeat Lab work results outpatient in 1 week of discharge. Script provided to facilitate
Activity: As tolerated
Driving Restrictions: As prior to admission
Bathing Restrictions: None
Blood Work: Repeat CBC and BMP with results to be forwarded to primary care provider and high pressure operator. Script provided to facilitate.
Activity Restrictions/Additional Instructions:
Follow up with primary care provider in 1 week of discharge and Pulmonology in 2 weeks of discharge.
Prednisone taper has been prescribed for COPD exacerbation/bronchitis:
30 mg daily x 2 days, 20 mg daily x2 days, 10 mg daily x2 days, then stop
Azithromycin for COPD exacerbation/bronchitis has been prescribed for 2 more days (total 5 days of treatment)
Trazodone has been prescribed as needed for insomnia 50 mg bedtime, OK to increase to max 100 mg bedtime as needed.
Regarding Melatonin it is not recommended to take more than 10 mg a day.
Please take medications as prescribed/recommended and follow up with primary care provider and/or other healthcare provider involved in your care for refills and/or further adjustment to your medication regimen as necessary.
Instructions: Low-potassium diet
Referrals:
Brent Pastor MD [Active, Pulmonary Medicine] - in two weeks
Referral Note: May see [facility] - post hospital DC then Dr. Neil in 4-6weeks.
Randal Funez MD [Family Provider, Internal Medicine] - in one week
Prescriptions:
New
trazodone 50 mg Tablet
50 mg PO HS PRN (Reason: sleep/insomnia) Qty: 10 0RF
Rx Instructions:
Ok to use max 2 tabs (100 mg) if 1 tab (50 mg) is not sufficient.
azithromycin 250 mg Tablet
250 mg PO DAILY Qty: 2 0RF
prednisone 10 mg Tablet
See Rx Instructions .ROUTE .COMPLEX Qty: 12 0RF
Rx Instructions:
Take By Mouth:
30 mg daily x2 days,
20 mg daily x2 days,
10 mg daily x2 days. Then stop
Continued
nifedipine 30 mg tablet extended release 24hr
30 mg PO DAILY
atorvastatin 40 mg tablet
40 mg PO DAILY
carvedilol 25 mg tablet
25 mg PO BID
allopurinol 100 mg tablet
200 mg PO DAILY
tamsulosin 0.4 mg capsule
0.8 mg PO DAILY
pantoprazole 40 mg tablet,delayed release (DR/EC)
40 mg PO DAILY
losartan 100 mg tablet
100 mg PO HS
Discharge Orders:
Discharge Patient (As Directed); Ordered 07/29/25
Ordered By: Meena Farah
Discharge Date and Time
Print Language: [place]ORE[place]
[2025-07-29] MEDS: PREVNAR 20 0.5 ML IM (16:57)
== END 2025-07-29 17:53 | disposition home or self-care (01) | DRG 191 ==
LOC: 4 WEST ACU 05:09
PROVIDERS: Emergency Medicine; Physician Assistant; ADMITTING PHYSICIAN Internal Medicine; ATTENDING PHYSICIAN Internal Medicine; CONSULT PHYSICIAN Internal Medicine Critical Care Medicine; EMERGENCY PHYSICIAN Emergency Medicine; FAMILY PHYSICIAN Internal Medicine
PROC: 3E0234Z Introduction of Serum, Toxoid and Vaccine into Muscle, Percutaneous Approach (ICD-10-PCS; 2025-07-29)
DX: J44.0 Chronic obstructive pulmonary disease with (acute) lower respiratory infection (principal); N17.9 Acute kidney failure, unspecified; J44.1 Chronic obstructive pulmonary disease with (acute) exacerbation; E66.9 Obesity, unspecified; I10 Essential (primary) hypertension; J20.9 Acute bronchitis, unspecified; R09.02 Hypoxemia; E87.5 Hyperkalemia; N40.0 Benign prostatic hyperplasia without lower urinary tract symptoms; K21.9 Gastro-esophageal reflux disease without esophagitis; G47.33 Obstructive sleep apnea (adult) (pediatric); M10.9 Gout, unspecified; E78.00 Pure hypercholesterolemia, unspecified; R06.89 Other abnormalities of breathing; K59.00 Constipation, unspecified; G47.00 Insomnia, unspecified; Z60.2 Problems related to living alone; Z87.442 Personal history of urinary calculi; Z87.891 Personal history of nicotine dependence; Z68.39 Body mass index [BMI] 39.0-39.9, adult; Z23 Encounter for immunization; Z11.52 Encounter for screening for COVID-19
CPT/HCPCS: 71046; 80048; 80053; 81003; 81015; 83735; 83880; 84100; 84484; 85025; 85027; 85379; 87086; 87502; 87811; 93005; 93306; 94640; 94760; 94762; 96365; 96375; 97162; 97166; 99285

== ENCOUNTER → 2025-08-31 11:55 | Outpatient (REF) | payer MEDICARE, OTHER, SELFPAY | LOC: HWRAD 11:55 | PROVIDERS: ATTENDING PHYSICIAN Urology; FAMILY PHYSICIAN Internal Medicine | DX: N40.0 Benign prostatic hyperplasia without lower urinary tract symptoms (principal) | CPT/HCPCS: 76770 ==